=== PATIENT | female | born 1995 | race Two or more races ===

== ENCOUNTER 2025-03-25 15:32 | Emergency (ER) | payer MEDICAID ==
[~2025-03-25] VITALS: Ht 162.6 cm; Wt 77.0 kg
[2025-03-25 16:07] VITALS: BP 138/85; PULSE 103; RESP 16; TEMP 98.4; O2SAT 97
--- NOTE | 2025-03-25 16:20 | ED.PDOC ---
History of Present Illness HPI Comments 29-year-old female came to the ER stating that she has started to have back pain 3 hours ago. Denies any heavy lifting. She states that she is 13 weeks . four. No vaginal bleeding only cramping. Has been followed by OBGYN. Denies nausea vomiting. Denies any other symptoms. Chief Complaint: Back Pain Time Seen by MD: 15:35 Primary Care Provider: ALBER Reviewed Notes: Nurses Notes, Medications, Allergies Allergies: Coded Allergies: NO KNOWN ALLERGIES (Unverified , 03/25/25) Information Source: Patient Mode of Arrival: Ambulatory Severity: Moderate Timing: Hours Duration: Since onset Past Medical History PAST MEDICAL HISTORY: Denies Surgical History: Denies all surgeries SERVICE CENTER REPRESENTATIVE History: No Pertinent SERVICE CENTER REPRESENTATIVE History Social History Smoker: Non-Smoker Alcohol: Denies ETOH Use Drugs: Denies Drug Use Constitutional: denies: chills, diaphoresis, fatigue, fever, malaise, sweats, weakness, others EENTM: denies: blurred vision, double vision, ear bleeding, ear discharge, ear drainage, ear pain, ear ringing, eye pain, eye redness, hearing loss, mouth pain, mouth swelling, nasal discharge, nose bleeding, nose congestion, nose pain, photophobia, tearing, throat pain, throat swelling, voice changes, others Respiratory: denies: cough, hemoptysis, orthopnea, SOB at rest, shortness of breath, SOB with excertion, stridor, wheezing, others Cardiovascular: denies: chest pain, dizzy spells, diaphoresis, Dyspnea on exertion, edema, irregular heart beat, left arm pain, lightheadedness, palpitations, PND, syncope, others Gastrointestinal: denies: abdomen distended, abdominal pain, blood streaked bowels, constipated, diarrhea, dysphagia, difficulty swallowing, hematemesis, melena, nausea, poor appetite, poor fluid intake, rectal bleeding, rectal pain, vomiting, others Genitourinary: denies: abnormal vagina bleeding, burning, dyspareunia, dysuria, flank pain, frequency, hematuria, incontinence, pain, , vagina discharge, urgency, others Neurological: denies: dizziness, fainting, headache, left sided numbness, left sided weakness, numbness, paresthesia, pre-existing deficit, right sided numbness, right sided weakness, seizure, speech problems, tingling, tremors, weakness, others Musculoskeletal: reports: back pain; denies: gout, joint pain, joint swelling, muscle pain, muscle stiffness, neck pain, others Integumetry: denies: bruises, change in color, change in hair/nails, dryness, laceration, lesions, lumps, rash, wounds, others Allergic/Immunocompromised: denies: Difficulty Healing, Frequent Infections, Hives, Itching, others Hematologic/Lymphatic: denies: anemia, blood clots, easy bleeding, easy bruising, swollen glands, others Endocrine: denies: excessive hunger, excessive sweating, excessive thirst, excessive urination, flushing, intolerance to cold, intolerance to heat, unexplained weight gain, unexplained weight loss, others Psychiatric: denies: anxiety, bipolar disorder, depression, hopeless, panic disorder, schizophrenia, sleepless, suicidal, others Physical Exam General Appearance: Moderate Distress HEENT: Normal ENT Inspection, Pharynx Normal, TMs Normal Neck: Full Range of Motion, Non-Tender, Normal, Normal Inspection Respiratory: Chest Non-Tender, Lungs Clear, No Accessory Muscle Use, No Respiratory Distress, Normal Breath Sounds Cardiovascular: No Edema, No JVD, No Murmur, No Gallop, Normal Peripheral Pulses, Regular Rate/Rhythm Breast Exam: Deferred Gastrointestinal: No Organomegaly, Non Tender, No Pulsatile Mass, Normal Bowel Sounds, Soft Genitalia: Deferred Pelvic: Deferred Rectal: Deferred Extremities: No calf tenderness, Normal capillary refill, Normal inspection, Normal range of motion, Non-tender, No pedal edema Musculoskeletal : Apperance: Normal Neurologic: Alert, hairspring studder II-XII nml as Tested, No Motor Deficits, Normal Affect, Normal Mood, No Sensory Deficits Cerebellar Function: Normal Reflexes: Normal Skin: Dry, Normal Color, Warm Peripheral Pulses: 3+ Radial (R), 3+ Radial (L) Lymphatic: No Adenopathy Was a procedure done? Was a procedure done?: No Differential Dx Considerations may include: Anemia Electrolyte imbalance X-Ray, Labs, Meds, VS Vital Signs Date Time Temp Pulse Resp B/P (MAP) Pulse Ox O2 Delivery O2 Flow Rate FiO2 03/25/25 16:07 98.4 103 16 138/85 (102) 97 98.4 03/25/25 15:32 98.4 103 16 138/85 (102) 97 98.4 Lab Test 03/25/25 16:00 03/25/25 15:54 Range/Units Urine Color Light-yellow Yellow Urine Clarity Clear Clear Urine pH 5.5 5.0-9.0 Urine Specific [place] 1.021 1.001-1.035 Urine Protein Negative Negative Urine Ketones Negative Negative Urine Blood Negative Negative /uL Urine Nitrite Negative Negative Urine Bilirubin Negative Negative Urine Urobilinogen Normal Negative mg/dL Urine Leukocyte Esterase Trace Negative /uL Urine RBC 2 0 - 4 /hpf Urine Microscopic WBC 2 0-5 /HPF Urine Squamous Epithelial Cells Few <5 /hpf Urine Bacteria None seen None Seen /hpf Urine Mucus Few None Seen Urine Glucose Normal Normal mg/dL Beta HCG, Quantitative Pending Patient alert. Complaining of cramping. Vitals stable. Answering all questions. Ambulating. No leg swelling. No shortness a breath. No chest pain. Saturation pristine on room air. Ultrasound reviewed does not show any acute changes. Urinalysis shows UTI. Was given prescription of Keflex antibiotic. Explained to the patient. Was told to follow up with her primary care physician. Was told to come back if there is any problem. Time of 1ST Reevaluation: 16:18 Reevaluation 1ST: Improved Patient Education/Counseling: Diagnosis, Treatment, Prognosis, Need For Follow Up Family Education/Counseling: No Family Present SEPSIS Sepsis Screen Date sepsis recognized/suspect: Mar 25, 2025 Time Sepsis recognized/suspect: 153 Recent Procedure: No On Antibiotic Therapy: No Respiratory Rate >20: No Heart Rate >90: Yes Temp<36 C (96.8 F) or >38.3 C: No SBP <90 or MAP <65 mmHG: No New Acute Mental Status Change: No Is the patient on CPAP, BIPAP,: No Physician Orders Beta Hcg, Quantitative (03/25/25 15:42) Ob Ultrasound Comp Less 14wks (03/25/25 15:42) Vital Signs Date Time Temp Pulse Resp B/P (MAP) Pulse Ox O2 Delivery O2 Flow Rate FiO2 03/25/25 16:07 98.4 103 16 138/85 (102) 97 98.4 03/25/25 15:32 98.4 103 16 138/85 (102) 97 98.4 Departure 1 Departure Time of Disposition: 16:19 Impression: Primary Impression: Normal Qualified Codes: Z34.90 - Encounter for supervision of normal , unspecified, unspecified trimester Additional Impression: UTI (urinary tract infection) Qualified Codes: N30.00 - Acute cystitis without hematuria Disposition: 01 HOME / SELF CARE / HOMELESS Condition: Good e-Prescriptions Cephalexin (KEFLEX CAPSULE) 250 Mg Cp 250 MG PO QID for 5 Days, #20 BOTTLE Prov: ORACIO VIDAL MD 03/25/25 Discharged With: Self Critical Care Note Critical Care Time?: No Stability Stability form required: No Heart Score Heart Score: Heart Score Response (Comments) Value History N/A 0 EKG N/A 0 Age N/A 0 Risk Factors N/A 0 Troponin N/A 0 Total 0 ORACIO VIDAL MD Mar 25, 2025 16:20
[2025-03-25 16:25] LABS: Urine Protein, UAD Negative (Negative)
[2025-03-25] MEDS ORDERED: CEPH250C PO ×2 (16:40→21:59)
--- NOTE | 2025-03-25 16:50 | DVH ---
EXAM DESCRIPTION: US OB ULTRASOUND COMP LESS 14WKS CLINICAL HISTORY: cramping COMPARISON: None TECHNIQUE: Multiple transverse and longitudinal sonograms of the pelvis were obtained utilizing transabdominal a nd transvaginal sonography. FINDINGS: The uterus measures 12.0 X 9.2 X 10.2 cm. A single viable intrauterine is identified. The c rown-rump length measures 6.6 cm, corresponding to a sonographic gestational age of 12 weeks and 6 da ys. Positive heart motion is identified, with heart rate of 148 beats per minute. The ovaries are not visualized. There is no free fluid. IMPRESSION: 1. Single viable intrauterine with a sonographic gestational age of 12 weeks and 6 days. Po sitive heart motion is identified. 2. The ovaries are not visualized.
== END 2025-03-25 17:12 | disposition home or self-care (01) ==
LOC: ER 15:32
DX: O23.41 Unspecified infection of urinary tract in pregnancy, first trimester (principal); N39.0 Urinary tract infection, site not specified; R10.2 Pelvic and perineal pain; Z3A.13 13 weeks gestation of pregnancy
CPT/HCPCS: 36415; 76801; 81001; 84702

== ENCOUNTER 2025-06-23 09:39 | Observation (INO) | payer MEDICAID ==
[~2025-06-23 09:39] MED LIST: CEPH250C PO
--- NOTE | 2025-06-24 07:29 | DVHDS2 ---
Physician Discharge Progress N Final Diagnosis: SOB,CHEST PAIN Operations or Procedures: Operations or Procedures NST REACTIVE REVIWED,SONO Condition on Discharge: Good Disposition: Home Discharge Instructions: Diet: Regular Activity: No Restrictions, As Tolerated Medications: NA Follow Up Care: Specialist: 1D WITH OB Discharge Statement: "Patient was advised to return to the ER or call 911 if any headaches, dizziness, shortness of breath, chest pain, abdominal pain, bleeding, fevers, or worsening of medical condition. Patient was counseled about treatment plan, medications, possible side effects, patientverbalized understanding. All questions were answered to the best of my ability. This discharge took greater then 30 minutes in planning, reviewing documentation, counseling the patient, and discussing with other team members." Visit Coding OBGYN Date of Service: Jun 23, 2025 Billing Provider: YANY CÁRDENAS DO VACU[facility] CASTER Common Visit Codes: 07492-GTDPMCS INP/OBS CARE (HIGH) VACUUM CASTER Procedure Codes: 40966-41- NON-STRESS TEST YANY CÁRDENAS DO Jun 24, 2025 07:29
== END 2025-06-23 11:08 | disposition home or self-care (01) ==
LOC: OB 09:39 → ER 09:39 → LDRP 09:56
PROVIDERS: ADMIT Obstetrics & Gynecology; ATTEND Obstetrics & Gynecology
DX: O26.892 Other specified pregnancy related conditions, second trimester (principal); R07.89 Other chest pain; R06.02 Shortness of breath; Z3A.26 26 weeks gestation of pregnancy; Z79.899 Other long term (current) drug therapy; Z98.890 Other specified postprocedural states
CPT/HCPCS: 36415; 81002; 82948; 82962; 84484; 94760; G0378; 59025